=== PATIENT | female | born 1960 | race Caucasian/White ===

== ENCOUNTER → 2021-03-24 | Outpatient (CLI) | payer MEDICARE, OTHER, MEDICAID ==
[~2021-03-24] MED LIST: MIRALAX17 GM PO
== END ==
LOC: KOH-I 09:00
DX: R10.84 Generalized abdominal pain (principal); R16.1 Splenomegaly, not elsewhere classified; K59.00 Constipation, unspecified
CPT/HCPCS: 74150

== ENCOUNTER 2021-03-26 13:38 | Emergency (ER) | payer MEDICARE, OTHER ==
[2021-03-26 14:21] LABS: HEMOGLOBIN 12.3 gm/dl (12.3-15.3); RED BLOOD COUNT 4.87 M/UL (4.00-5.10); WHITE BLOOD COUNT 5.3 K/UL (4.5-11.0)
[2021-03-26] MEDS ORDERED: MIRALAX17 GM PO (17:14)
== END 2021-03-26 17:31 | disposition home or self-care (01) ==
LOC: ER1 13:38
PROVIDERS: Physician Assistant
DX: K59.00 Constipation, unspecified (principal); E11.9 Type 2 diabetes mellitus without complications; I10 Essential (primary) hypertension; Z88.6 Allergy status to analgesic agent
CPT/HCPCS: 80053; 81001; 83690; 85025; 99284